=== PATIENT | male | born 1970 | race Caucasian/White ===

== ENCOUNTER 2016-10-22 01:02 | Emergency (ER) | payer OTHER ==
[~2016-10-22] VITALS: Ht 167.6 cm; Wt 70.3 kg
[2016-10-22 01:31] VITALS: BP_SYST 148
[2016-10-22 02:20] VITALS: BP_SYST 148
== END 2016-10-22 02:20 ==
LOC: SED 01:02
DX: Z02.83 Encounter for blood-alcohol and blood-drug test (principal); V89.2XXA Person injured in unspecified motor-vehicle accident, traffic, initial encounter; Y93.89 Activity, other specified; Y99.8 Other external cause status; Y92.89 Other specified places as the place of occurrence of the external cause
CPT/HCPCS: 99283